=== PATIENT | female | born 1965 | race Hispanic/Latino ===

== ENCOUNTER 2019-02-18 10:15 | Outpatient (CLI) | payer OTHER ==
--- NOTE | 2019-02-18 11:01 | RAD ---
RIGHT HAND THREE VIEWS: History: Injury to fourth finger. FINDINGS: Carpals appear intact. Metacarpals and phalanges appear intact. Mild degenerative change at the DIP j oints with mild dorsal spurring. No fracture, dislocation, or acute osseous abnormality identified. There is a faint linear density with the soft tissues of the distal fourth digit. This could potentia lly represent a soft tissue foreign body. Recommend clinical correlation. IMPRESSION: 1. No evidence of acute osseous abnormality. 2. A faint linear density seen in the soft tissues adjacent to the distal phalanx of the fourth digit . Correlate clinically regarding soft tissue foreign body. POS: [facility]
[2019-02-18 12:45] LABS: #Basophils 0.1 thou/uL (0.0-0.2); #Eosinphils 0.2 thou/uL (0.0-0.7); #Lymphocytes 1.2 thou/uL (1.20-3.40); #Monocytes 0.6 thou/uL (0.11-0.59); #Neutrophils 5.3 thou/uL (1.40-6.50); %Basophils 1.1 % (0.0-1.0); %Eosinophils 2.3 % (0.0-10.0); %Lymphocytes 16.4 % (21.0-51.0); %Neutrophils 72.3 % (42.0-75.0); Hemoglobin 13.6 g/dL (12.0-16.0); Mean Corpuscular HGB CONC 31.4 g/dL (32.0-36.0); Mean Corpuscular Hemoglobin 33.2 pg (27.0-31.0); Mean Corpuscular Volume 105.8 fL (78.0-98.0); Mean Platelet Volume 6.9 fL (7.4-10.4); Platelet Count 347 thou/uL (130-400); RBC Distribution Width 12.3 % (11.5-14.5); Red Blood Cell (RBC) Count 4.11 mill/uL (4.20-5.40); White Blood Cell (WBC) Count 7.4 thou/uL (4.8-10.8)
[2019-02-18 12:51] LABS: ALT (SGPT) 64 U/L (8-55); AST (SGOT) 107 U/L (5-34); Albumin 4.4 g/dL (3.5-5.0); Alkaline Phosphatase 515 U/L (40-150); Anion Gap 15 mmol/L (10-20); BUN (Urea Nitrogen) 7 mg/dL (9.8-20.1); Bilirubin, Total 0.9 mg/dL (0.2-1.2); Calc. Creatinine Clearance 0 mL/min (70-130); Calcium 9.7 mg/dL (7.8-10.44); Carbon Dioxide 26 mmol/L (22-29); Cardiac Risk 2.6 (Less than 4.5); Chloride 101 mmol/L (98-107); Cholesterol 240 mg/dl (< 200 Desired); Estimated GFR-MDRD 84; Globulin 3.8 g/dL (2.4-3.5); Glucose 100 mg/dL (70-105); HDL Cholesterol 94 mg/dL (>60 Neg Risk); LDL Cholesterol, Calculated 121 mg/dL; Potassium 4.6 mmol/L (3.5-5.1); Protein, Total 8.2 g/dL (6.0-8.3); Sodium 137 mmol/L (136-145); Triglycerides 123 mg/dL (Less than 150)
[2019-02-18 12:56] LABS: Eosinophils 1 % (0-10); Lymphocytes 18 % (21-51); Monocytes 6 % (0-10)
[2019-02-18 12:57] LABS: Anisocytosis SLIGHT = 6-15 cells (100X) (0-5/hpf); Macrocytosis SLIGHT = 6-15 cells (100X) (0-5/hpf); Platelet Morphology Comment Appears Adequate
[2019-02-18 13:00] LABS: MDiff Complete? YES
== END 2019-02-18 10:16 | disposition home or self-care (01) ==
LOC: MADLABBHPM 10:15 → EDSTATUS 10:18
PROVIDERS: ATTEND Family Medicine
DX: S67.10XA Crushing injury of unspecified finger(s), initial encounter (principal); I16.0 Hypertensive urgency
CPT/HCPCS: 36415; 80053; 80061; 85025